=== PATIENT | male | born 1990 | race Caucasian/White ===

== ENCOUNTER 2021-09-05 09:52 | Emergency (ER) | payer OTHER ==
[~2021-09-05] VITALS: Ht 180.3 cm; Wt 99.8 kg
[2021-09-05] MEDS ORDERED: NAPROXEN250 MG PO (10:35)
[2021-09-05] MEDS ORDERED: TYLENOL325 M1 PO (10:35)
[2021-09-05] MEDS ORDERED: PENICILLIN-VK500 MG PO (10:35)
== END 2021-09-05 10:38 | disposition home or self-care (01) ==
LOC: ED 09:52
DX: K02.9 Dental caries, unspecified (principal); Z91.040 Latex allergy status